=== PATIENT | female | born 1975 | race African-American/Black ===

== ENCOUNTER 2023-04-06 12:19 | Emergency (ER) | payer SELFPAY ==
[~2023-04-06] VITALS: Ht 170.2 cm; Wt 120.4 kg
[2023-04-06 13:18] VITALS: BP 126/92; PULSE 98; RESP 18; TEMP 97.3; O2SAT 99
[2023-04-06 15:42] LABS: Rapid Influenza A Negative (Negative); Rapid Influenza B Negative (Negative)
[2023-04-06 15:45] LABS: COVID19 ANTIGEN SOFIA FIA NEGATIVE (NEGATIVE)
[2023-04-06] MEDS ORDERED: AZIT-43 PO (16:14)
[2023-04-06] MEDS ORDERED: PRED20TA2 PO (16:14)
[2023-04-06] MEDS ORDERED: ALBUAER3 IN (16:14)
[2023-04-06] MEDS ORDERED: BENZ100C97 PO (16:14)
== END 2023-04-06 16:26 | disposition home or self-care (01) ==
LOC: ER 12:19
DX: R05.9 Cough, unspecified (principal); R06.2 Wheezing; M79.10 Myalgia, unspecified site; M54.6 Pain in thoracic spine; Z20.822 Contact with and (suspected) exposure to COVID-19; Z88.8 Allergy status to other drugs, medicaments and biological substances; Z79.899 Other long term (current) drug therapy
CPT/HCPCS: 36415; 87426; 87804

== ENCOUNTER 2023-06-20 06:34 | Emergency (ER) | payer OTHER ==
[~2023-06-20] VITALS: Ht 170.2 cm; Wt 125.0 kg
[~2023-06-20 06:34] MED LIST: ALBUAER3 IN; AZIT-43 PO; BENZ100C97 PO; PRED20TA2 PO
[2023-06-20 06:38] VITALS: BP 134/67; PULSE 115; RESP 20; TEMP 98.7; O2SAT 99
[2023-06-20] MEDS ORDERED: LIDO2SOL26 MT (07:55)
[2023-06-20] MEDS ORDERED: BENZ100C97 PO (07:55)
[2023-06-20] MEDS ORDERED: AUG875T PO (07:55)
[2023-06-20] MEDS ORDERED: PROM1SOL4 PO (07:55)
[2023-06-20] MEDS ORDERED: IBUP1TAB5 PO (07:55)
[2023-06-20] MEDS: KETOROLAC TROMETH 30 MG/ML 1ML VIAL IM ONE (08:13)
== END 2023-06-20 08:54 | disposition home or self-care (01) ==
LOC: ER 06:34
DX: B34.9 Viral infection, unspecified (principal)
CPT/HCPCS: 96372; 99283; J1885

== ENCOUNTER 2025-01-12 17:41 | Emergency (ER) | payer MEDICAID, OTHER ==
[~2025-01-12] VITALS: Ht 170.2 cm; Wt 132.0 kg
[~2025-01-12 17:41] MED LIST changes: +AUG875T PO; +IBUP1TAB5 PO; +LIDO2SOL26 MT; +PROM1SOL4 PO
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
[2025-01-12 19:46] VITALS: BP 159/94; PULSE 91; RESP 19; TEMP 98.2; O2SAT 97
[2025-01-12] MEDS: KETOROLAC TROMETH 60MG/2ML VIAL IM ONE (19:46)
[2025-01-12] MEDS ORDERED: METH4PAK PO (19:52)
[2025-01-12] MEDS ORDERED: TIZA-142 PO (19:52)
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
== END 2025-01-12 20:17 | disposition home or self-care (01) ==
LOC: ER 17:41
DX: S33.5XXA Sprain of ligaments of lumbar spine, initial encounter (principal); S29.012A Strain of muscle and tendon of back wall of thorax, initial encounter; S16.1XXA Strain of muscle, fascia and tendon at neck level, initial encounter; Z79.899 Other long term (current) drug therapy; Z88.5 Allergy status to narcotic agent; Z79.52 Long term (current) use of systemic steroids; V49.9XXA Car occupant (driver) (passenger) injured in unspecified traffic accident, initial encounter; Y93.89 Activity, other specified; Y92.89 Other specified places as the place of occurrence of the external cause; Y99.8 Other external cause status
CPT/HCPCS: 72040; 72070; 72100; 96372; 99284; J1100; J1885